=== PATIENT | female | born 1980 | race African-American/Black ===

== ENCOUNTER 2016-03-13 20:23 | Emergency (ER) | payer SELFPAY ==
[2016-03-13 20:41] VITALS: TEMP 98.3; BMI 51.7
[2016-03-13] MEDS ORDERED: HYDROCODONE 5 MG/ACETAMIN 325 MG TAB PO ONE (20:49)
--- NOTE | 2016-03-13 20:52 | EDPRACDOC ---
- General Information Chief Complaint: Knee Pain Stated Complaint: RT KNEE PAIN NUMBNESS DOWN TO ANKLE NO RECENT INJU Time Seen by Provider: 03/13/16 20:45 Information Source: Patient Mode of Arrival: Car Home Medications: Home Medications Ondansetron HCl [Zofran] 4 mg PO TID PRN #7 tablet 12/05/15 Hydrocodone Bit/Acetaminophen [Lortab 5/325] 1 tab PO Q4-6H PRN #15 tab Ibuprofen 800 mg PO TID PRN #30 tablet 03/13/16 Allergies/Adverse Reactions: Allergies Allergy/AdvReac Type Severity Reaction Status Date / Time No Known Allergies Allergy Verified 12/04/15 22:47 - History of Present Illness Onset: 2 hours precinct captain HPI: Pt states R knee pain with tingling to ankle x 1 day. Pt states pain started while sitting on couch. Denies injury, thigh pain, foot pain, rash, redness or swelling. Knee Problem Location: Right Mechanism: Reports: No Trauma Circumstances: Reports: Spontaneous Relevant History: Reports: Arthritis Able to Bear Weight: Limited Pain Severity: Reports: Moderate Associated Signs & Symptoms: Reports: Numbness, Leg Pain ED Past Medical History - History Reviewed Yes Nurses notes reviewed and agree except as marked - Patient Medical History Respiratory History: Reports: Asthma Psychological History: Reports: Depression, Anxiety Systemic History: Reports: Anemia (IRON DEFICIENCY). Denies: Cancer Additional Past Medical History: Migraine Headaches Surgical History: Reports: Tonsillectomy/Adnoidectomy, Other (TUBAL LIGATION). Denies: Hysterectomy - Family Medical History Reports: Hypertension (Mother) - Social Medical History Smoking Status: Never smoker ETOH: None Substance Abuse: None EDM Review of Systems - Review of Systems Constitutional: No Symptoms Reported. negative: Fever, Chills, Weakness, Fatigue, Loss of Appetite Respiratory: No Symptoms Reported. negative: Cough, Brassy Cough, Barky Cough, Shortness of Breath, Wheezing, Hemoptysis Cardiovascular: No Symptoms Reported. negative: Chest Pain, Palpitations, Syncope, Edema, Orthopnea, PND, Skin Mottling, Cyanosis Neurological: Numbness, Tingling. negative: No Symptoms Reported, Dizziness, Gait Difficulty, Headache, Seizure, Speech Difficulty, Weakness Musculoskeletal: Knee Integumentary: No Symptoms Reported. negative: Itching, Rash, Bruising, Wound Allergic/Immunologic: No Symptoms Reported. negative: Hives, Itching Hematologic: No Symptoms Reported. negative: Lymphadenopathy, Easy Bruising, Easy Bleeding Psychiatric: No Symptoms Reported. negative: Anxiety, Depression, Hallucinations, Insomnia, Suicidal - Physical Exam Constitutional: Alert Oriented to: Time, Person, Place Last recorded Vital Signs: Last Vital Signs Temp 98.3 F 03/13/16 20:38 Pulse 92 03/13/16 20:38 Resp 20 03/13/16 20:38 BP 183/86 H 03/13/16 20:38 Pulse Ox 97 03/13/16 20:38 Oxygen Pulse Oxygen Saturation 97 O2 Device Room Air Oxygen Flow Rate Fraction of Inspired Oxygen ( FIO2) - HEENT Head: Normal ( normocephalic) - Respiratory/Cardiovascular Respiratory: Normal - CTA (BBS clear to auscultation without adventitious sounds ) Cardiovascular: Normal (RRR without murmur, gallop or rub) - Musculoskeletal Back: Normal (Non-Tender) Extremities: Normal (Normal tone, Pulses 2+ No cyanosis or edema, FROM) - Integumentary Skin: Normal, Warm, Dry Lymphatics: Normal (no adenopathy) - Neurologic Memory Impaired: Normal Motor Function: Normal (Normal tone, Pulses 2+ No cyanosis or edema, FROM) Mood Description: Normal Perception: Normal ED Knee Problem Phys Exam - Musculoskeletal Knee: Mild Tenderness Knee Ligaments: Normal Knee Meniscus: Normal Thigh: Normal Lower Leg: Normal Distal Function/Circulation: Normal (Dorsalis pedis pulse +2 R foot) - Integumentary Skin: Normal Lymphatics: Normal - Other Exam Other Exam Findings: No erythema, noted swelling, pulse present in R foot pedal pulse, no calf tenderness. ED Procedures - Additional Procedures Progress Note: Juan wrap applied to R knee, pt leg to large for knee immobilizer to fit. - Differential Diagnosis DJD Arthritis, Sprain - Diagnostic Imaging Knee Image interpreted by: Radiologist IMPRESSION: Moderate tricompartment osteoarthritis with peripheral osteophytes and probable mild tibial femoral joint space narrowing. No acute bony abnormality. Irregular ossification in the medial knee may be adjacent to the femoral condyle and reflect prior MCL injury or adjacent to the patella and related to the retinaculum. Regardless, this is chronic. Decision Time to Discharge: 21:44 - Departure Disposition: Home Condition: Good Final Diagnosis: Osteoarthritis of knee Instructions: Osteoarthritis (ED), RICE Therapy (ED) Education/Counseling Given To: Patient Education/Counseling Given Regarding: Diagnosis, Treatment, Follow Up Referrals: Avril Douglas PILE DRIVING TECHNICIAN [Primary Care Provider] - One Week Steven Aguayo MD [Staff Physician] - One Week Prescriptions: New Hydrocodone Bit/Acetaminophen [Lortab 5/325] 1 tab PO Q4-6H PRN #15 tab PRN Reason: Pain Ibuprofen 800 mg PO TID PRN #30 tablet PRN Reason: Pain No Action Ondansetron HCl [Zofran] 4 mg PO TID PRN #7 tablet PRN Reason: NAUSEA OR VOMITING
--- NOTE | 2016-03-13 21:42 | DIRPT ---
CLINICAL DATA: Right knee pain. Lower extremity tingling. EXAM: RIGHT KNEE - COMPLETE 4+ VIEW COMPARISON: 01/30/2008 FINDINGS: No acute fracture. Progressive tricompartmental osteoarthritis from prior exam with tricompartmental osteophytes. Mild tibial femoral joint space narrowing suspected. There is spurring of tibial spines. Irregular calcification in the medial knee, may be adjacent to the patella or medial femoral condyle. No large joint effusion. IMPRESSION: Moderate tricompartment osteoarthritis with peripheral osteophytes and probable mild tibial femoral joint space narrowing. No acute bony abnormality. Irregular ossification in the medial knee may be adjacent to the femoral condyle and reflect prior MCL injury or adjacent to the patella and related to the retinaculum. Regardless, this is chronic. Electronically Signed By: Arminda Mitchell M.D. On: 03/13/2016 21:39
[2016-03-13] MEDS ORDERED: IBUPROFEN 800 MG TAB PO ONE (21:43)
[2016-03-13 22:14] VITALS: BP 81/78; PULSE 88
== END 2016-03-13 21:56 | disposition home or self-care (01) ==
LOC: ED 20:23 → EDMC 21:56
DX: M17.11 Unilateral primary osteoarthritis, right knee (principal)
CPT/HCPCS: 73564; 99284; J3490